=== PATIENT | male | born 2000 | race African-American/Black ===

== ENCOUNTER 2022-12-16 00:31 | Emergency (ER) | payer MEDICAID ==
[~2022-12-16] VITALS: Ht 185.4 cm; Wt 65.0 kg
[2022-12-16] MEDS ORDERED: ALBUTEROL (0.083%) 2.5MG/3ML NEB HHN STA (01:31)
[2022-12-16] MEDS ORDERED: IPRATROPIUM BROMIDE (0.02%) 0.5MG/2.5ML NEB HHN STA (01:31)
[2022-12-16] MEDS ORDERED: PREDNISONE 20MG TABLET PO STA (01:31)
[2022-12-16] MEDS ORDERED: FLUT1DIS3 INH (03:11)
[2022-12-16] MEDS ORDERED: P20 MT (03:11)
[2022-12-16 03:39] VITALS: BP 117/74
== END 2022-12-16 03:30 | disposition home or self-care (01) ==
LOC: ER 00:31
DX: J45.909 Unspecified asthma, uncomplicated (principal); Z91.010 Allergy to peanuts; Z76.0 Encounter for issue of repeat prescription
CPT/HCPCS: 94640; 99283; J7512; Z7610

== ENCOUNTER 2022-12-18 16:07 | Emergency (ER) | payer MEDICAID ==
[~2022-12-18] VITALS: Ht 185.4 cm; Wt 63.6 kg
[~2022-12-18 16:07] MED LIST: FLUT1DIS3 INH; P20 MT
[2022-12-18 16:46] VITALS: BP 111/64
== END 2022-12-18 21:00 | disposition left against medical advice (07) ==
LOC: ER 16:07
DX: Z53.21 Procedure and treatment not carried out due to patient leaving prior to being seen by health care provider (principal)
CPT/HCPCS: 99281